=== PATIENT | female | born 1980 | race Two or more races ===

== ENCOUNTER 2023-02-07 21:49 | Emergency (ER) | payer MEDICAID, SELFPAY ==
[2023-02-07 21:55] VITALS: BP 150/77; PULSE 83; RESP 18; TEMP 37.3; O2SAT 98; BMI 27.3
[2023-02-08] VITALS: BP 140/72; PULSE 79; RESP 16; TEMP 37.1; O2SAT 96
--- NOTE | 2023-02-08 00:14 | ED_ITS ---
HPI - Eye Problem General Chief complaint: Eye Problems Stated complaint: both eyes burning Time Seen by Provider: 02/07/23 23:51 Source: patient Mode of arrival: ambulatory Limitations: no limitations History of Present Illness chief complaint: eye pain and eye redness Onset (ago): day(s) (1) Onset description: sudden Duration: constant Location: both eyes Eye Symptoms: burning, redness, pain and discharge Place: home Mechanism: none Severity: severe Associated symptoms: none Treatments Prior to Arrival: none Related Data Previous Rx's Medication Instructions Recorded erythromycin 5 mg/gram (0.5 %) eye 1 appl ophthalmic (eye) .hs #3.5 02/08/23 ointment grams polymyxin B sulfate 10,000 1 drp ophthalmic (eye) QID #10 mL 02/08/23 unit-trimethoprim 1 mg/mL eye drops (Polytrim) Allergies Allergy/AdvReac Type Severity Reaction Status Date / Time No Known Allergies Allergy Verified 02/07/23 21:55 Review of Systems Review of Systems: CONSTITUTIONAL: Denies weight loss, fever and chills. HEENT: Denies changes in vision and hearing. RESPIRATORY: Denies SOB and cough. CV: Denies palpitations no CP. GI: Denies abdominal pain, nausea, vomiting and diarrhea. : Denies dysuria and urinary frequency. MSK: Denies myalgia and joint pain. SKIN: Denies rash and pruritus. NEUROLOGICAL: Denies headache and syncope. PSYCHIATRIC: Denies recent changes in mood. Denies anxiety and depression. All other ROS are negative unless in HPI PMFSH Social History Social History Smoked in Last 30 Days: No Physical Exam Vital Signs: Vital Signs: Last Vital Signs Temp 99.1 F 02/07/23 21:55 Pulse 83 02/07/23 21:55 Resp 18 02/07/23 21:55 BP 150/77 H 02/07/23 21:55 Pulse Ox 98 02/07/23 21:55 O2 Del Method Room Air 02/07/23 21:55 BMI result Body Mass Index 27.3 GEN: Well developed, no acute distress, alert, oriented HEENT: Normocephalic, atraumatic, normal external ears, nose appears normal, bilateral conjunctival injection, no purulent drainage Eyes: Normal to appearance Neck: Supple, no lymphadenopathy Respiratory: Talks in complete sentences, no respiratory distress Extremities: No clubbing cyanosis or edema Neurologic: No focal neurologic deficits, cranial nerves 2-12 intact, gait normal Skin: No rash Medical Decision Making Medical Decision Making MDM Narrative: Patient presents with bilateral eye pain. Examination is consistent with acute bilateral conjunctivitis. Patient reports what sounds like a bacterial conjunctivitis with purulent drainage however, this is not visualized and physical exam. We will go ahead and start patient on Polytrim during the day and erythromycin ointment at night. Patient can return for worsening symptoms. 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 Differential Diagnosis Differential Diagnoses: The differential diagnosis associated with the presentation includes (Viral conjunctivitis, bacterial conjunctivitis, allergic conjunctivitis, inflammation) Prescription Management I considered prescription management with: Antibiotic Discharge Plan Discharge Clinical Impression: Conjunctivitis Patient Disposition: Home, Self-Care Instructions: Conjunctivitis (ED) Prescriptions: New polymyxin B sulf-trimethoprim [Polytrim] 10,000 unit- 1 mg/mL drops 1 drp ophthalmic (eye) QID Qty: 10 0RF Rx Instructions: while awake; do not exceed 6 doses in 24 hours erythromycin 5 mg/gram (0.5 %) ointment 1 appl ophthalmic (eye) .hs Qty: 3.5 0RF Referrals: Robert Machado [Physician] - 1 week
--- OUTSIDE RECORDS SUMMARY | 2023-02-08 00:27 | XMS_ITS | Continuity of Care Document ---
Author Name Unknown Organization [facility] Address [address] [place] [id number]- Care Team Providers Care Office Service Coordinator Name Role Phone Not on Staff, PCP Primary Care Physician Unavail able Encounter [facility] Date(s): 10/30/20 - 11/29/20 [facility] [address] [place] [id number] Attending Physician: Jeremy Olmos Admitting Physician: AdmtrJeremy Referring Physician: Admtr, Ar8 Allergies, Adverse Reactions, Alerts Substance Reaction Severity Status Flexeril Active Medications Flagyl 500 mg oral tablet 1 tablet = 500 mg, By Mouth, Every 8 hours, do not drink alcohol may take with food to minimize abdominal discomfort, # 29 tablet, 0 Refills, Maintenance, 05/01/16 14:37:16, Tablet Start Date: 05/01/16 Stop Date: 05/11/16 Status: Ordered PEG-3350 with Electrolytes (Eqv-NuLYTELY) oral powder for reconstitution See Instructions, as directed, # 1 each, 0 Refills, Maintenance, 10/30/20 13:18:00 EDT, [facility][id number], Ok to sub for any gallon prep, as directed, 151.5, cm, 06/29/20 12:08:00 EST, Height, 71.8, kg, 06/29/20 12:08:00 EST, Dry Weight Start Date: 10/30/20 Status: Ordered Vivitrol = 380 mg, Intramuscular, Every 28 days, 0 Refills, Maintenance, 05/01/16 8:20:32 Start Date: 05/01/16 Status: Ordered
--- OUTSIDE RECORDS SUMMARY | 2023-02-08 00:27 | XMS_ITS | Continuity of Care Document ---
Author Name Unknown Organization [facility] ter Address [address] [place] [address]- Care Team Providers Care Cash Person Name Role Phone Verna Simeon MD Primary Care Physician Encounter [facility] [place] Date(s): 06/29/20 - 06/29/[address] [address]- Discharge Disposition: A-D/C Home Attending Physician: Jesse Mora MD Admitting Physician: Jesse Mora MD Referring Physician: Not on Staff, Referring MD Allergies, Adverse Reactions, Alerts Substance Reaction Severity Status Flexeril Active Medications Flagyl 500 mg oral tablet 1 tablet = 500 mg, By Mouth, Every 8 hours, do not drink alcohol may take with food to minimize abdominal discomfort, # 29 tablet, 0 Refills, Maintenance, 05/01/16 14:37:16, Tablet Start Date: 05/01/16 Stop Date: 05/11/16 Status: Ordered Vivitrol = 380 mg, Intramuscular, Every 28 days, 0 Refills, Maintenance, 05/01/16 8:20:32 Start Date: 05/01/16 Status: Ordered Results Radiology Reports * Exam Date Time Procedure Performing Provider Status 06/29/20 11:34 AM Chest Portable Gissel Doss; Auth (Verified) Notes: (Chest Portable) Reason For Exam: Cough RESULT: Chest Portable Chest Portable Reason: Cough, history of COVID exposure.; Clinical Question(s): Pneumonia COMPARISON: None. FINDINGS: LINES AND TUBES: None. LUNGS AND PLEURA: Mild bibasilar atelectasis. No evidence of focal consolidations. No pleural effusion. No pneumothorax. HEART, MEDIASTINUM AND DARREN: Heart is normal in size. Normal upper mediastinal and hilar contour. BONES AND SOFT TISSUES: No acute abnormality. IMPRESSION: No acute abnormality. I have personally reviewed the images and I agree with this report. WSN: [id number] Ordering Physician: Serina Gonsales Dictated By: Stefan Doshi DO Dictated Date/Time: 06/29/20 12:01 p Reviewed By: Myrtle Newton MD Signed By: Myrtle Newton MD Signed Date/Time: 06/29/20 12:06 pm Transcribed By: JENNIFER Transcribed Date/Time: 06/29/20 11:37 am Vital Signs Most recent to oldest [Reference Range]: 1 2 Height 151.5 cm (06/29/20 12:08 PM) 151.5 cm (06/29/20 9:47 AM) Weight 71.8 kg (06/29/20 12:08 PM) 71.8 kg (06/29/20 9:47 AM) Oxygen Saturation [94-100 %] 99 % (06/29/20 12:08 PM) 97 % (06/29/20 9:47 AM) Pulse Rate [55-90 bpm] 94 bpm *H* (06/29/20 12:08 PM) 103 bpm *H* (06/29/20 9:47 AM) Body Mass Index [18.5-24.99] 31.28 *>HHI* (06/29/20 12:08 PM) 31.28 *>HHI* (06/29/20 9:47 AM) Blood Pressure [90-138/55-84 mm Hg] 126/ 84mm Hg (06/29/20 12:08 PM) 133/87mm Hg (06/29/20 9:47 AM) Respiratory Rate [16-30 br/min] 20 br/mi n (06/29/20 12:08 PM) 19 br/min (06/29/20 9:47 AM) Temperature [96.8-100.4 DegF] 98.1 DegF (06/29/20 12:08 PM) 99.2 DegF (06/29/20 9:47 AM) Mode of Delivery (Oxygen) Room air (06/29/20 12:08 PM) Room air (06/29/20 9:47 AM) Blood pressure sites Arm, left (06/29/20 12:08 PM) Arm, left (06/29/20 9:47 AM) Temperature Route Temporal (06/29/20 12:08 PM) Oral (06/29/20 9:47 AM) Dry Weight 71.8 kg (06/29/20 12:08 PM) 71.8 kg (06/29/20 9:47 AM) Weight Obtained Via Standing scale (06/29/20 9:47 AM) Dry Weight Obtained Via Standing scale (06/29/20 9:47 AM)
--- OUTSIDE RECORDS SUMMARY | 2023-02-08 00:27 | XMS_ITS | Continuity of Care Document ---
Author Name Unknown Organization [facility] ter Address [address] [place] [id number]- Care Team Providers Care Service Clerk Name Role Phone Not on Staff, PCP Primary Care Physician Unavail able Encounter [facility] [place] Date(s): 11/10/20 - 11/10/[address] [id number] Discharge Disposition: A-D/C Home Attending Physician: Madai Monteiro MD Admitting Physician: Madai Monteiro MD Referring Physician: Madai Monteiro MD Allergies, Adverse Reactions, Alerts Substance Reaction [...] each, 0 Refills, Maintenance, 10/30/20 13:18:00 EDT, [facility] #[id number], Ok to sub for any gallon prep, as directed, 151.5, cm, 06/29/20 12:08:00 EST, Height, 71.8, kg, 06/29/20 12:08:00 EST, Dry Weight Start Date: 10/30/20 Status: Ordered Vivitrol = 380 mg, Intramuscular, Every 28 days, 0 Refills, Maintenance, 05/01/16 8:20:32 Start Date: 05/01/16 Status: Ordered Procedures Procedure Date Related Diagnosis Body Site Status Colonoscopy 11/10/20 Completed Vital Signs Most recent to oldest [Reference Range]: 1 2 3 Height 150 cm (11/10/20 11:34 AM) Oxygen Saturation [94-100 %] 100 % (11/10/20 12:49 PM) 98 % (11/10/20 12:41 PM) 98 % (11/10/20 11:34 AM) Pulse Rate [55-90 bpm] 64 bpm (11/10/20 11:34 AM) Blood Pressure [90-138/55-84 mm Hg] 110/78mm Hg (11/10/20 12:49 PM) 104/68mm Hg (11/10/20 12:41 PM) 91/52mm Hg (11/10/20 11:34 AM) Respiratory Rate [16-30 br/min] 11 br/min *L* (11/10/20 12:49 PM) 13 br/min *L* (11/10/20 12:41 PM) 17 br/min (11/10/20 11:34 AM) Temperature [96.8-100.4 DegF] 97.7 DegF (11/10/20 11:34 AM) Mode of Delivery (Oxygen) Room air (11/10/20 12:49 PM) Room air (11/10/20 12:41 PM) Room air (11/10/20 11:34 AM) Blood pressure sites Arm, left (11/10/20 12:49 PM) Arm, left (11/10/20 12:41 PM) Arm, left (11/10/20 11:34 AM) Temperature Route Temporal (11/10/20 11:34 AM) Dry Weight 68.2 kg (11/10/20 11:34 AM) Dry Weight Obtained Via Patient/family s tated (11/10/20 11:34 AM)
--- OUTSIDE RECORDS SUMMARY | 2023-02-08 00:27 | XMS_ITS | Continuity of Care Document ---
Author Name Unknown Organization [facility] ter Address [address] [place] [address]- Care Team Providers Care Ghost Writer Name Role Phone Not on Staff, PCP Primary Care Physician Unavail able Encounter [facility] [place] Date(s): 12/03/20 - 12/04/[address] [id number] Discharge Disposition: A-D/C Home Attending Physician: Alli Barboza MD Admitting Physician: Mee De La Rosa DO Referring Physician: Not on Staff, Referring MD Allergies, Adverse Reactions, Alerts Substance Reaction Severity Status Flexeril Active Medications Colace sodium 100 mg oral capsule 100 mg, 1, capsule, By Mouth, 2 times a day, PRN, # 100 capsule, Refills 1, Tot. Refills 1, Maintenance, as needed for constipation, 12/04/20 12:21:00 EDT, Route to Pharmacy Electronically, [facility] #[id number], Partial fill upon patient reques... Start Date: 12/04/20 Status: Ordered MiraLax oral powder for reconstitution = 17 Gm, By Mouth, Daily, PRN Constipation, dissolve in water before taking, # 527 Gm, 1 Refills, Maintenance, 12/04/20 12:21:00 EDT, REC Powder, [facility] #[id number], Partial fill upon patient request if the prescription is for a schedule II o... Start Date: 12/04/20 Status: Ordered MorPHINE Inj 4 mg, Injection, IV Push Slowly, Every 4 hours, PRN for Pain , Severe, Routine, 12/03/20 18:42:00 EDT Start Date: 12/03/20 Stop Date: 12/04/20 Status: Discontinued Problem List Condition Effective Dates Status Health Status Inform ant Anxiety(Confirmed) Active Vital Signs Most recent to oldest [Reference Range]: 1 2 3 Height 150 cm (12/04/20 11:23 AM) 150 cm (12/04/20 8:32 AM) 150 cm (12/04/20 6:10 AM) Weight 68.9 kg (12/03/20 9:33 PM) Oxygen Saturation [94-100 %] 100 % (12/04/20 11:23 AM) 100 % (12/04/20 8:32 AM) 100 % (12/04/20 6:10 AM) Pulse Rate [55-90 bpm] 85 bpm (12/04/20 11:23 AM) 63 bpm (12/04/20 8:32 AM) 72 bpm (12/04/20 6:10 AM) Body Mass Index [18.5-24.99] 30.62 *>HHI* (12/03/20 9:33 PM) Blood Pressure [90-138/55-84 mm Hg] 113/68mm Hg (12/04/20 11:23 AM) 111/60mm Hg (12/04/20 8:32 AM) 101/53mm Hg (12/04/20 6:10 AM) Respiratory Rate [16-30 br/min] 18 br/min (12/04/20 11:23 AM) 18 br/min (12/04/20 9:20 AM) 17 br/min (12/04/20 8:32 AM) Temperature [96.8-100.4 DegF] 98.6 DegF (12/04/20 11:23 AM) 98.5 DegF (12/04/20 8:32 AM) 98.4 DegF (12/04/20 6:10 AM) Mode of Delivery (Oxygen) Room air (12/04/20 11:23 AM) Room air (12/04/20 8:32 AM) Room air (12/04/20 6:10 AM) Blood pressure sites Arm, left (12/04/20 11:23 AM) Arm, left (12/04/20 8:32 AM) Arm, left (12/04/20 6:10 AM) Temperature Route Oral (12/04/20 11:23 AM) Oral (12/04/20 8:32 AM) Oral (12/04/20 6:10 AM) Weight Obtained Via Bed scale (12/03/20 9:33 PM) Social History Social History Type Response Smoking Status 5-9 cigarettes (betw eepushpa 1/4 to 1/2 pack)/day in last 30 days; Interested in cessation: No entered on: 12/03/20 Sex
--- OUTSIDE RECORDS SUMMARY | 2023-02-08 00:27 | XMS_ITS | Continuity of Care Document ---
Author Name Unknown Organization [facility] Address [address] [place] [address]- Care Team Providers Care Practice Nurse Name Role Phone Not on Staff, PCP Primary Care Physician Unavail able Encounter [facility] [place] Date(s): 11/12/20 - 12/12/20 [facility] [address] [place] [address]- Allergies, Adverse Reactions, Alerts Substance Reaction Severity Status Flexeril Active Medications Colace sodium 100 mg oral capsule 100 mg, 1, capsule, By Mouth, 2 times a day, PRN, # 100 capsule, Refills 1, Tot. Refills 1, Maintenance, as needed for constipation, 12/04/20 12:21:00 EDT, Route to Pharmacy Electronically, [facility] #[id number], Partial fill upon patient reques... Start Date: 12/04/20 Status: Ordered MiraLax oral powder for reconstitution = 17 Gm, By Mouth, Daily, PRN Constipation, dissolve in water before taking, # 527 Gm, 1 Refills, Maintenance, 12/04/20 12:21:00 EDT, REC Powder, [email or web address] #[id number], Partial fill upon patient request if the prescription is for a schedule II o... Start Date: 12/04/20 Status: Ordered Problem List Condition Effective Dates Status Health Status Inform ant Anxiety(Confirmed) Active Social History Social History Type Response Smoking Status 5-9 cigarettes (betw een 1/4 to 1/2 pack)/day in last 30 days; Interested in cessation: No entered on: 12/03/20 Sex
== END 2023-02-08 00:32 | disposition home or self-care (01) ==
LOC: HO.ED 02-08 00:26
PROVIDERS: Emergency Provider Emergency Medicine
DX: H10.9 Unspecified conjunctivitis (principal); H53.8 Other visual disturbances
CPT/HCPCS: 99284